=== PATIENT | male | born 1990 | race Caucasian/White ===

== ENCOUNTER → 2016-09-23 | Outpatient (REF) | LOC: WSOH 08:51 | DX: Z00.00 Encounter for general adult medical examination without abnormal findings (principal) | CPT/HCPCS: G0463 ==

== ENCOUNTER 2017-02-07 00:37 | Emergency (ER) | payer OTHER ==
[~2017-02-07] VITALS: Ht 172.7 cm; Wt 104.5 kg
[2017-02-07 00:39] VITALS: TEMP 98
[2017-02-07] MEDS ORDERED: MOBIC15 MG PO (00:44)
[2017-02-07] MEDS ORDERED: PRILOSEC 20MG20 MG PO (00:44)
[2017-02-07 02:45] VITALS: BP 127/73; PULSE 75
== END 2017-02-07 02:51 | disposition home or self-care (01) ==
LOC: COL.ER 00:37
DX: G43.909 Migraine, unspecified, not intractable, without status migrainosus (principal); M62.838 Other muscle spasm; K21.9 Gastro-esophageal reflux disease without esophagitis
CPT/HCPCS: J1170; J2550; J7040

== ENCOUNTER → 2017-02-07 | Outpatient (REF) ==
[~2017-02-07] MED LIST: MOBIC15 MG PO; PRILOSEC 20MG20 MG PO
== END ==
LOC: ZLAB.WCH 09:17
DX: Z01.89 Encounter for other specified special examinations (principal)

== ENCOUNTER 2021-04-10 07:49 | Outpatient (CLI) | payer OTHER ==
[2021-04-10] VITALS (8 sets, daily range): BP systolic 116–130; BP diastolic 66–86; PULSE 55–68; TEMP 98–98.3
[~2021-04-10] VITALS: Ht 172.7 cm; Wt 113.6 kg
[2021-04-10] MEDS ORDERED: INDERAL60 MG PO (09:03)
[2021-04-10] MEDS ORDERED: MASON NATURAL2000 IU PO (09:04)
[2021-04-10] MEDS ORDERED: SUDAFED 12 HOU120 MG PO (09:05)
== END 2021-04-10 10:15 | disposition home or self-care (01) ==
LOC: EUO 07:49
DX: U07.1 COVID-19 (principal); E66.9 Obesity, unspecified
CPT/HCPCS: M0245